=== PATIENT | male | born 1940 | race African-American/Black ===

== ENCOUNTER 2016-10-01 05:08 | Inpatient (IN) | payer OTHER, MEDICARE ==
[~2016-10-01] VITALS: Ht 175.3 cm; Wt 67.1 kg
[~2016-10-01 05:08] MED LIST: AMLODIPINE BESY10 M1 PO; CYCLOBENZAPRINE10 M1 PO; MOBIC15 MG PO; NAPROXEN250 M1 PO; TRAMADOL50 MG PO; TYLENOL WITH C1 EACH PO
[2016-10-01] MEDS ORDERED: FLOMAX0.4 M1 PO (09:24)
--- NOTE | 2016-10-01 09:42 | Operative Report ---
Operative/Inv Procedure Report Surgery Date: 10/01/16 Name of Procedure: Right total knee arthroplasty Pre-Operative Diagnosis: Right knee primary osteoarthritis Post-Operative Diagnosis: Same with final pathology pending Estimated Blood Loss: less than 50ml Surgeon/Oil Well Shooter: RUTH ATKINSON,Pablo HIGGINS Anesthesia: block Implants: Mushtaq triathlon total knee system-size 4 femur, size 4 tibia, 11 mm cruciate retaining polyethylene, 31 patella Drains: None Specimens: Femoral, tibial, patellar bone Microbiology: Urine Tourniquet: 53 minutes Complications: None Condition: Stable Operative Indication: Patient is a 75-year-old man with a long history of gradually worsening right knee pain. Patient had been treated conservatively for a period time but this resulted only short-term improvement. X-rays revealed severe end-stage osteoarthritis. He wished to proceed with total knee arthroplasty after risks benefits and expectations of surgical procedure which included but were not limited to persistent knee pain, need for subsequent surgery, infection, DVT, injury to blood vessel or nerve, anesthesia risks. Operative/Procedure Note Note: Patient was brought to the operating room and transferred to the operating table. Once under appropriate anesthesia the right lower extremity was prepped and draped in standard fashion. Preoperative IV antibiotic's were given prophylactically. Leg was elevated exsanguinated and tourniquet was inflated to 300 pounds pressure. A standard anterior incision was made for anticipated medial parapatellar approach to the knee. Incision was taken down sharply to the underlying retinaculum. A medial retinacular approach was used with a minimal extension into the quadriceps tendon. Retractors were placed the knee was flexed. Osteophytes were excised. I used intramedullary drill to enter the canal the femur for the use of the intramedullary guide for the distal femoral cut. The cut was set for 6 valgus. Cutting block was pinned in place. The cut was made while protecting soft tissues with the retractors. Femur was incised to a size 4. Size 4 cutting block was pinned in place based on the 3 externally rotated sizing jig. 4 cuts were made while protecting soft tissues. I then turned to the tibia. The I used the external tibial alignment guide and pin the cutting block in position for a neutral cut from medial to lateral and reproducing patient's posterior slow-paced on preoperative templating and intraoperative measurements. Again the soft tissues were protected medially laterally and posteriorly. The cut was made. The tibia was sized to a size 4. Size 4 tibia 11 mm insert and a size 4 femur were applied and the knee was taken out to full extension. I was satisfied with the soft tissue balancing in full extension mid flexion and full flexion to gravity. The patella was then measured and the appropriate thickness was removed and then replaced with a size 31 patella. The 3 lug holes were drilled. The knee was taken through range of motion. I was satisfied with the patellofemoral tracking. Marked my rotation of the tibia and drilled the 2 lug holes for the femur. All history is were removed. I then finished preparation of the tibia with the appropriate sized tibial punch. This instrumentation was removed removed. Copious irrigation of the knee followed. The anterior chamfer bone was used to plug the distal femur to minimize postoperative swelling and hemarthrosis. Cement was being mixed on the back table. Cement was applied to the dry clean bony surfaces of the tibia. The size 4 tibia was impacted in place and excess cement was removed with curettes. Cement was applied to the dry clean bony surfaces of the femur. The size 4 femur was impacted in place and excess cement was removed with curettes. A 11 mm insert was inserted and then the knee was taken out to full extension to maximize cement mantle compression. Cement was applied to the dry clean bony surfaces of the patella. The 31 patella was impacted in place and cement was removed with a knife. As the cement was hardening I did a periarticular pericapsular injection of ropivacaine with epinephrine and Toradol cocktail. Once the cement hardened I took the knee through range of motion. Excess cement was removed with osteotomes. I was satisfied with the 11 mm insert. The trial polyethylene was removed and the tibial tray was copiously irrigated. A major there was no cement fragments, bone fragments or soft tissue within the plate. I then impacted the definitive size 11 mm cruciate retaining polyethylene to place. The locking mechanism was confirmed. Copious irrigation followed and copious irrigation followed every level of closure. The tourniquet was deflated at 53 minutes. Hemostasis was obtained. There was no need for a drain. Again I was satisfied with the patellofemoral tracking and the soft tissue balance. retinaculum was closed with interrupted #1 Vicryl sutures including the quadricep extension. Subcutaneous tissues closed with 2-0 Vicryl in 2 layers and skin was closed with a running 3-0 Vicryl suture with the knee in flexion. Appropriate dressings were applied and patient was awakened and taken to recovery room in good condition. No intraoperative complications. Blood loss was minimal due to tourniquet. Discharge Disposition: PACU
--- NOTE | 2016-10-01 13:59 | PN- Orthopedic ---
Subjective Subjective: The patient was seen this afternoon postoperatively. He reports that his pain is under adequate control and has no complaints at the current time. Objective Vital Signs and I&Os Vital signs: Blood pressure 120/58, pulse 80, temperature 98.7, O2 saturation 100% on room air. I's and O's: 1850 ML's end of lactated Ringer's/300 of urine out via Vivas catheter/EBL less than 100 Physical Exam: Gen.: Alert and in no obvious distress Skin: Warm and dry Cardiac: S1-S2 regular Pulmonary: Bilateral breath sounds are equal with good exchange Extremities: Bilateral lower extremities are warm without calf tenderness or significant edema. Gross motor and sensory were intact. Right knee surgical dressing is clean, dry, and intact. There was an On-Q pain pump in place. Assessment/Plan Assessment/Plan Assessment: 75-year-old male status post right total knee arthroplasty postoperative patient is progressing as expected and his pain is under adequate control. Plan: Out of bed with physical therapy patient is weightbearing as tolerated Continue current pain regiment Light IV hydration and monitor output of Vivas catheter Postoperative prophylactic antibiotics Resume home medications GI and DVT prophylaxis first dose of Coumadin tonight Follow-up morning laboratory studies Advance diet as tolerated Core Measures/Miscellaneous Venous Thromboembolism VTE Risk Factors: Age > 40, Surgery VTE Contraindications: No Contraindications VTE Diagnosis: No Beta Michelle Is Beta Michelle a Home Med? No Antibiotics Is Patient on Antibiotics? Yes If Yes: prophylaxis
--- NOTE | 2016-10-01 14:40 | Patient Discharge Instructions ---
Discharge Instructions General Discharge Information You were seen/treated for: Right knee pain related to unilateral primary osteoarthritis You had these procedures: Right total knee replacement Watch for these problems: Increasing pain despite the use of pain medication. Increasing redness, warmth, swelling. Drainage of any type from incision. Inability to bear weight on operative leg. Persistent nausea and vomitting. Fever greater than 101.5 degrees. Do not soak the wound: Yes No bath, but you may shower: Yes Other wound care: Keep wound clean and dry. Your dressing will be changed on the second day following your surgery by nursing. Daily dry dressing changes recommend thereafter. No ointments or lotions of any type on or near incision at any time. No exceptions. Special Instructions: Coumadin: You are taking coumadin in order to help protect you from developing blood clots. Another name for this medication is Warfarin. The dose of this medication is based on bloodwork called INR and therefore it may change daily. Your INR will be checked at a minimum of 2 times per week, and the results will be given to Dr. Santoro. He will give you instructions regarding how much coumadin you are to be taking each day. If you are not sure of your daily dose, please contact his office for clarification or instructions as needed. You need to have your INR checked 2 days from discharge, on 10/05/16. Diet Continue normal diet: Yes Recommended Diet: Regular Activity Full Activity/No Limits: No Activity Self Limited: Yes Pounds, do NOT lift more than: 10 Activity Limited to: Weight bear as tolerated Acute Coronary Syndrome Inclusion Criteria At DC or during hospital stay patient has or had the following: ACS DIAGNOSIS No Discharge Core Measures Meds if any: Prescribed or Continued at Discharge Meds if any: NOT Prescribed or Continued at Discharge Congestive Heart Failure Inclusion Criteria At DC or during hospital stay patient has or had the following: CHF DIAGNOSIS No Discharge Core Measures Meds if any: Prescribed or Continued at Discharge Meds if any: NOT Prescribed or Continued at Discharge Cerebrovascular accident Inclusion Criteria At DC or during hospital stay patient has or had the following: CVA/TIA Diagnosis No Discharge Core Measures Meds if any: Prescribed or Continued at Discharge Meds if any: NOT Prescribed or Continued at Discharge Venous thromboembolism Inclusion Criteria VTE Diagnosis No VTE Type NONE VTE Confirmed by (Test) NONE Discharge Core Measures - Per Current guidelines, there needs to be overlap - treatment for the first 5 days of Warfarin therapy. - If discharged on Warfarin prior to 5 days of - overlap therapy, the patient will need to be - assessed for post discharge needs including - *Post discharge parental anticoagulation - *Warfarin and/or parental anticoagulation education - *Follow up date to check INR post discharge At least 5 days overlap therapy as Inpatient Yes Meds if any: Prescribed or Continued at Discharge Note: Overlap Therapy is Warfarin and Anticoagulant Meds if any: NOT Prescribed or Continued at Discharge
--- NOTE | 2016-10-01 14:43 | Surgical Discharge Summary ---
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 Vietnamese Review of Systems: See H&P Hospital Course Course Attending Physician: RUTH ATKINSON,[facility] Primary Care Physician: JUAN ATKINSON,[facility] Course: Patient was admitted to the hospital on 10/01/2016 for an elective total joint replacement. The procedure was tolerated well and the patient was transferred to a general surgical floor. There, the patient's diet was advanced and tolerated, the patient voided spontaneously, and was evaluated and treated by physical therapy. At the time of hospital discharge, vital signs were stable and within normal limits, neurovascular status was intact, and pain was controlled with the use of oral pain medication. Allergies: Coded Allergies: No Known Allergies (09/21/16) Disposition Summary Disposition Principal Diagnosis: Right knee unilateral primary osteoarthritis Additional Diagnosis: None Discharge Disposition: home health services Discharge Instructions General Discharge Information Code Status: Full Code Patient's Diet: Regular, advance as tolerated Patient's Activity: WBAT Follow-Up Instructions/Appts: Follow up with Dr. Santoro in 2 weeks from date of surgery. Please call his office to arrange and or confirm this appointment. Medications at Discharge Discharge Medications: Continue taking these medications: Amlodipine Besylate (Amlodipine Besylate) 10 MG TABLET 2 Tablet ORAL DAILY Comments: Last Taken:10/03/2016 Time:9AM Tamsulosin HCl (Flomax) 0.4 MG CAP.ER.24H 1 Capsule ORAL DAILY Comments: Last Taken:10/03/2016 Time:9AM Start taking the following new medications: Oxycodone HCl/Acetaminophen (Percocet 5-325 MG Tablet) 5 MG-325 MG TABLET 1-2 Tablet ORAL EVERY 6 HOURS NEEDED as needed for pain Qty = 24 No Refills Comments: Last Taken:10/03/2016 Time:930AM Docusate Sodium (Docusate Sodium) 100 MG CAPSULE 100 Milligram ORAL TWICE DAILY as needed for constipation Qty = 30 No Refills Comments: Last Taken:10/03/2016 Time:9AM Warfarin Sodium (Coumadin) 5 MG TABLET 5 Milligram ORAL COUMADIN AT 5PM Qty = 30 No Refills Instructions: Take 5mg daily unless otherwise directed. Get INR (coumadin level lab test) 2 days from discharge (10/05/16). Comments: Last Taken: Time:NOT GIVEN ON THIS ADMISSION. TO START TONIGHT
--- NOTE | 2016-10-01 15:27 | NUR ---
PT ARRIVED TO FLOOR. VSS. SKIN INTACT. PT ON RA, MATILDE, #20 LFA WITH D5LR RUNNING AT 75. FAIZAN WRAP DRESSING TO R KNEE C/D/I. +CMS. +PULSES. NO C/O PAIN. ON Q PUMP 10 ML/HR R ADDUCTOR. PT ORIENTED TO ROOM AND EDUCATED EDITORIAL INTERN URIARTE USE. WILL CONTINUE TO MONITOR.
[2016-10-01 17:27] VITALS: BP 118/62
[2016-10-01 19:30] VITALS: BP 100/60
[2016-10-01 21:23] VITALS: BP 120/60
[2016-10-02] VITALS: BP 122/64
[2016-10-02 04:00] VITALS: BP 114/70
--- NOTE | 2016-10-02 08:14 | PN- Orthopedic ---
See Addendum Subjective Subjective: Pain is 5 foot of 10 to the right knee at its maximum. He feels well otherwise, no fever, chest pain, nausea vomiting or flulike illness. He is voiding well. He is taking inadequate by mouth. Objective Vital Signs and I&Os Vital Signs Date Time Temp Pulse Resp B/P B/P Pulse O2 O2 Flow FiO2 Mean Ox Delivery Rate 10/02 0400 98.3 69 18 114/70 95 Room Air 10/02 0000 98.2 75 18 122/64 96 Room Air 10/01 2123 98.6 66 18 120/60 96 Room Air 10/01 1930 98.1 73 18 100/60 98 Room Air 10/01 1727 97.8 71 20 118/62 98 Room Air Intake & Output 10/02 1600 10/02 0800 10/02 0000 10/01 1600 10/01 0800 10/01 0000 Intake Total 555 Output Total 1450 2500 Balance -1450 -1945 Intake, IV 525 Intake, Oral 30 Output, Urine 1450 2500 Patient 148 lb Weight Physical Exam: Well-developed well-nourished no apparent distress. HEENT: Atraumatic, extraocular motion intact Neck: Supple, no lymphadenopathy Respiratory: No respiratory distress Extremities: No edema RIGHT lower extremity dressing in place, Range of motion is 0-70. Compression wrap in place. ALPS in place Neurovascularly intact distally Bilateral calves are supple, nontender. Neuro: Alert and oriented x3 Psych: Mood affect normal, normal memory normal judgment. Skin: Warm and dry, no rash on exposed skin Results Last 48 Hours of Labs: Laboratory Tests 10/02 0700 Chemistry Sodium Pending Potassium Pending Chloride Pending Carbon Dioxide Pending Anion Gap Pending BUN Pending Creatinine Pending BUN/Creatinine Ratio Pending Coagulation PT Pending INR Pending Hematology CBC w Diff Pending WBC Pending RBC Pending Hgb Pending Hct Pending MCV Pending MCH Pending RDW Pending Plt Count Pending MPV Pending PUBS MCHC Pending Assessment/Plan Assessment/Plan 75-year-old male postop day #1 status post right total knee arthroplasty Plan: Out of bed with physical therapy patient is weightbearing as tolerated Continue current pain regiment DC IV fluids On-Q to continue until tomorrow Continue home medication GI and DVT prophylaxis, continue Coumadin, INR pending Follow labs this morning Diet as tolerated Plan for discharge in 1-2 days, patient was planning on rehabilitation however he may be able to go home with VNA services if he continues to progress well Core Measures/Miscellaneous Venous Thromboembolism VTE Risk Factors: Age > 40, Surgery VTE Contraindications: No Contraindications VTE Diagnosis: No Beta Michelle Is Beta Michelle a Home Med? No Antibiotics Is Patient on Antibiotics? Yes If Yes: prophylaxis
[2016-10-02 08:39] LABS: PT 13.9 SEC (9.4-12.5)
[2016-10-02 08:45] LABS: ABSOLUTE BASOPHIL COUNT 0 /CUMM (0.0-0.2); ABSOLUTE EOSINOPHIL COUNT 0.1 /CUMM (0.0-0.7); ABSOLUTE GRANULOCYTE CT 5.5 /CUMM (1.4-6.5); ABSOLUTE LYMPH COUNT 0.8 /CUMM (1.2-3.4); ABSOLUTE MONOCYTE COUNT 0.8 /CUMM (0.10-0.60); BASOPHIL % 0.3 % (0.0-2.0); EOSINOPHIL % 1.6 % (0-5); GRANULOCYTE % 75.2 % (42.2-75.2); HEMATOCRIT 32.8 % (42-52); MEAN CORPUSCULAR HGB 28.6 PG (27.0-31.0); MEAN CORPUSCULAR VOLUME 86.8 FL (80.0-94.0); MEAN PLATELET VOLUME 9.5 FL (7.4-10.4); PLATELET COUNT 126 /CUMM (130-400); RBC DISTRIBUTION WIDTH 12.8 % (11.5-14.5); RED BLOOD CELL CT 3.78 /CUMM (4.70-6.10); WHITE BLOOD CELL COUNT 7.3 /CUMM (4.8-10.8)
[2016-10-02 12:35] VITALS: BP 126/70
[2016-10-02 14:31] VITALS: BP 140/60
[2016-10-02 23:02] VITALS: BP 116/44
[2016-10-03 00:01] VITALS: BP 134/62
[2016-10-03 06:30] VITALS: BP 128/70
[2016-10-03 08:17] LABS: ABSOLUTE BASOPHIL COUNT 0 /CUMM (0.0-0.2); ABSOLUTE EOSINOPHIL COUNT 0.1 /CUMM (0.0-0.7); ABSOLUTE GRANULOCYTE CT 6.8 /CUMM (1.4-6.5); ABSOLUTE LYMPH COUNT 1.3 /CUMM (1.2-3.4); ABSOLUTE MONOCYTE COUNT 1.2 /CUMM (0.10-0.60); BASOPHIL % 0.3 % (0.0-2.0); EOSINOPHIL % 0.6 % (0-5); GRANULOCYTE % 72.6 % (42.2-75.2); HEMATOCRIT 31.8 % (42-52); MEAN CORPUSCULAR HGB 28.7 PG (27.0-31.0); MEAN CORPUSCULAR HGB CONC 32.7 G/DL (33.0-37.0); MEAN CORPUSCULAR VOLUME 87.8 FL (80.0-94.0); MEAN PLATELET VOLUME 9.7 FL (7.4-10.4); PLATELET COUNT 120 /CUMM (130-400); RBC DISTRIBUTION WIDTH 12.8 % (11.5-14.5); RED BLOOD CELL CT 3.62 /CUMM (4.70-6.10); WHITE BLOOD CELL COUNT 9.3 /CUMM (4.8-10.8)
[2016-10-03 08:27] LABS: PT 19.7 SEC (9.4-12.5)
--- NOTE | 2016-10-03 08:55 | PN- Orthopedic ---
Subjective Subjective: feeling well. some pain RLE controlled w pain meds. OOB w PT. no other complaints, no cp/sob/n/v/f/c Objective Vital Signs and I&Os Vital Signs Date Time Temp Pulse Resp B/P B/P Pulse O2 O2 Flow FiO2 Mean Ox Delivery Rate 10/03 0630 99.3 65 18 128/70 96 Room Air 10/03 0001 98.9 134/62 10/02 2302 99.1 74 20 116/44 97 Room Air 10/02 1835 98.1 10/02 1431 99.3 98 18 140/60 100 Room Air 10/02 1235 98.7 80 18 126/70 98 Room Air Intake & Output 10/03 1600 10/03 0800 10/03 0000 10/02 1600 10/02 0800 10/02 0000 Intake Total 150 200 500 555 Output Total 750 265 891 0855 2500 Balance -600 -440 300 -1450 -1945 Intake, IV 525 Intake, Oral 150 200 500 30 Output, Urine 750 652 350 1061 2500 Physical Exam: GEN: NAD CARD: s1s2 rrr PULM: ctab ABD: soft nt EXT: R knee dressing changed, scant dried bloody staining on dsg. incisions w steris- no erythema, + edema at knee. gross sensate and motor intact. +dorsi/ plantar flexion with 5/5 strength. +DP/PT pulses. Assessment/Plan Assessment/Plan A: 75M POD2 sp R TKR, stable, w appropriate postop pain. P: OOB, WBAT, PT DC planning, dispo per PT recs coum per INR prn pain meds labs pdg will dw attending Core Measures/Miscellaneous Venous Thromboembolism VTE Risk Factors: Age > 40, Surgery VTE Contraindications: No Contraindications VTE Diagnosis: No Beta Michelle Is Beta Michelle a Home Med? No Antibiotics Is Patient on Antibiotics? Yes If Yes: prophylaxis
--- NOTE | 2016-10-03 09:16 | RADIOLOGY REPORT ---
EXAMINATION: XR KNEE, RIGHT CLINICAL INFORMATION: Status post right TKA COMPARISON: None TECHNIQUE: Two views of the right knee. FINDINGS: There is a total right knee arthroplasty. The distal femoral component articulates appropriately with the tibial plateau and patellar components. No periprosthetic lucency or fracture. Postoperative soft tissue gas. Joint effusion. IMPRESSION: Appropriate alignment of the right total knee arthroplasty.
[2016-10-03 09:26] VITALS: BP 110/80
[2016-10-03] MEDS ORDERED: PERCOCET 5-3251 EACH PO (11:37)
[2016-10-03] MEDS ORDERED: DOCUSATE SODIU100 M3 PO (11:37)
[2016-10-03] MEDS ORDERED: COUMADIN5 M2 PO (11:41)
== END 2016-10-03 12:26 | disposition home health service (06) | DRG 470 ==
LOC: SDA 05:08 → 2NA 05:08 → ENRESERV 12:58 → ENTRNSPT 13:56 → EDTRNSPTSTS 14:19 → EDTRNSPTTYP 14:19 → 2NA 15:20 → CMPTRNSPT 15:22 → 2NA 10-03 12:26
PROVIDERS: Physician Assistant; Physician Assistant Surgical; ADMIT Orthopaedic Surgery
PROC: 0SRC0J9 Replacement of Right Knee Joint with Synthetic Substitute, Cemented, Open Approach (ICD-10-PCS; principal; 2016-10-01)
DX: M17.11 Unilateral primary osteoarthritis, right knee (principal); I10 Essential (primary) hypertension; N40.0 Benign prostatic hyperplasia without lower urinary tract symptoms
CPT/HCPCS: 2NASP; 36415; 73560-RT; 82436; 87086; 88305; 97110-GO; 97116-GO; 97161-GP; 97530-GO; C1713; J0131; J0171; J1885; J2405; J2795; J3370; J7040

== ENCOUNTER 2017-07-13 04:48 | Emergency (ER) | payer OTHER, MEDICARE ==
[~2017-07-13] VITALS: Ht 172.7 cm; Wt 63.5 kg
[~2017-07-13 04:48] MED LIST changes: +AMLODIPINE-BEN1 EAC2 PO; +COUMADIN5 M2 PO; +DOCUSATE SODIU100 M3 PO; +FLOMAX0.4 M1 PO; +PERCOCET 5-3251 EACH PO
[2017-07-13 05:03] VITALS: BP 127/79
--- NOTE | 2017-07-13 05:05 | ED NECK/BACK PAIN COMPLAINT ---
History of Present Illness General Chief Complaint: Low Back Pain/Injury Stated Complaint: PT C/O BACK PAIN X'S FEW MTH'S PER PT Source: patient Exam Limitations: no limitations Vital Signs & Intake/Output Vital Signs & Intake/Output Vital Signs Date Time Temp Pulse Resp B/P B/P Pulse O2 O2 Flow FiO2 Mean Ox Delivery Rate 07/13 0503 98.2 72 20 127/79 98 Allergies Coded Allergies: No Known Allergies (09/21/16) Reconcile Medications Amlodipine Besylate/Benazepril (Amlodipine-Benazepril 5-20 MG) 5 MG-20 MG CAPSULE 1 CAP PO DAILY HTN (Reported) Cyclobenzaprine HCl 10 MG TABLET 1 TAB PO 4 TIMES/DAY PRN MUSCLE SPASM Ibuprofen 600 MG TABLET 1 TAB PO TID PRN PAIN with food Tamsulosin HCl (Flomax) 0.4 MG CAP.ER.24H 1 CAP PO DAILY PROSTATE (Reported) Triage Note: PER PT BACK PAIN FOR MONTHS, THOUGHT I WOULD WAIT UNTIL NOW SO ITS NOT BUSY" TYLENOL DOES NOT WORK DENIES INURY TRAUMA OR URINE CO Triage Nurses Notes Reviewed? yes Onset: Gradual Duration: week(s): Timing: recent history Quality/Severity: moderate Location: lumbar spine Radiation: none Context: "i had back surgery 2-3 years ago." Method of Injury: prior back surgery, chronic pain Loss of Consciousness: no loss of consciousness Modifying Factors: movement, pain medication, rest Associated Symptoms: muscle spasm HPI: 76 yo gentleman h/o chronic lower back pain x 3-4 years, presents with lower back pain, a "muscle tightness" without radiation, trauma, bowel or bladder issues. He is able to ambulate without problem. Past History Travel History Traveled to [place] past 21 day No Medical History Any Pertinent Medical History? 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 No Review of Systems Review of Systems Constitutional: Reports: no symptoms. Eyes: Reports: no symptoms. Ears, Nose, Throat, Mouth: Reports: no symptoms. Respiratory: Reports: no symptoms. Cardiovascular: Reports: no symptoms. Gastrointestinal/Abdominal: Reports: no symptoms. Musculoskeletal: Reports: no symptoms. Skin: Reports: no symptoms. Neurological/Psychological: Reports: no symptoms. All Other Systems: Reviewed and Negative Physical Exam Physical Exam General Appearance: well developed/nourished, mild distress Head: atraumatic Eyes: Bilateral: normal appearance. Ears, Nose, Throat, Mouth: hearing grossly normal Neck: normal inspection, supple, full range of motion, normal alignment, limited range of motion Respiratory: normal breath sounds Cardiovascular: regular rate/rhythm Gastrointestinal: soft, non-tender Back: normal inspection, muscle spasm, no vertebral tenderness Extremities: normal range of motion Neurologic/Psych: awake, alert, oriented x 3, normal mood/affect Skin: intact, normal color, warm/dry Core Measures CVA/TIA Diagnosis: No Progress Differential Diagnosis: myofascial strain Plan of Care: Current Medications Sig/Hodan Start time Last Medication Dose Stop Time Status Admin Acetaminophen 975 MG ONCE ONE 07/13 0530 CANr (Tylenol) 07/13 0531 Diagnostic Imaging: Viewed by Me: CT Scan. Discussed w/RAD: CT Scan. Departure Departure Disposition: HOME OR SELF CARE Condition: Stable Clinical Impression Primary Impression: Chronic back pain Referrals: Bobo Choi MD (PCP/Family) Departure Forms: Customer Survey General Discharge Information Prescriptions: Current Visit Scripts Cyclobenzaprine HCl 1 TAB PO 4 TIMES/DAY PRN MUSCLE SPASM #30 TAB Ref 1 Ibuprofen 1 TAB PO TID PRN PAIN #30 TAB with food Comments 07/13/17, 5:23am... pt with chronic back pain... wrote for flexeril and ibuprofen ... encouraged close follow up.
[2017-07-13] MEDS ORDERED: CYCLOBENZAPRINE10 M1 PO (05:18)
[2017-07-13] MEDS ORDERED: IBUPROFEN600 M1 PO (05:18)
== END 2017-07-13 05:29 ==
LOC: ERH 04:48
DX: M54.5 Low back pain (principal)